=== PATIENT | female | born 1990 | race Caucasian/White ===

== ENCOUNTER 2018-03-29 18:58 | Emergency (ER) | payer SELFPAY, OTHER ==
[2018-03-29 22:57] LABS: URINE BLOOD (Dip) POC Trace-intact (NEGATIVE); URINE KETONES (Dip) POC 4+ (NEGATIVE); URINE LEUKOCYTE EST (Dip) POC 1+ (NEGATIVE); URINE NITRITE (Dip) POC Positive (NEGATIVE); URINE TOTAL PROTEIN POC Negative (NEGATIVE)
[2018-03-29] MEDS: KETOROLAC 60 MG INJ IM (23:53)
[2018-03-30] MEDS: FLUCONAZOLE 150 MG TAB PO (01:29)
== END 2018-03-30 01:35 | disposition home or self-care (01) ==
LOC: FTE 18:58
DX: R10.2 Pelvic and perineal pain (principal); E11.9 Type 2 diabetes mellitus without complications
CPT/HCPCS: 81003; 81025; 82962; 87210; 87220; 87591; 96372; 99284-25